=== PATIENT | female | born 1965 | race Caucasian/White ===

== ENCOUNTER 2018-11-19 08:48 | Emergency (ER) | payer BC, OTHER ==
[2018-11-19 09:14] VITALS: BP 138/80
--- NOTE | 2018-11-19 09:27 | UC ---
HPI BURN - HPI Summary HPI Summary: Patient presents to urgent care for evaluation of carlton to her bilateral hands. Patient was at work and he was elementary school. Patient states she touched a hot vidal without hot pads however she goes. Patient states he had a she had pain to her from an index of both hands. Patient removed the closet when her hands under cold water. Patient is well-nourished put AL ointment on her hands. Patient did not take any analgesia. Patient continues to have a stinging feeling on both her thumb and her index on both hands. No open wounds. No blisters. Tetanus is up-to-date. Patient denies any other injuries. Medications reviewed this visit. - History of Current Complaint Chief Complaint: UCBurn Stated Complaint: BURN TO HANDS Time Seen by Provider: 11/19/18 09:26 Hx Obtained From: Patient Hx Last Menstrual Period: NOVASURE AGE 44 Pain Intensity: 6 - Allergy/Home Medications Allergies/Adverse Reactions: Allergies Allergy/AdvReac Type Severity Reaction Status Date / Time codeine Allergy Severe DIFFICULTY Verified 11/19/18 09:04 BREATHING , TIGHTNESS IN CHEST oxycodone Allergy Severe Dizziness Verified 11/19/18 09:04 aspirin Allergy Unknown Vomiting Verified 11/19/18 09:04 azithromycin Allergy Unknown Hives Verified 11/19/18 09:04 ciprofloxacin [From Cipro] Allergy Unknown DIARHHEA Verified 11/19/18 09:04 clarithromycin [From Biaxin] Allergy Unknown Diarrhea Verified 11/19/18 09:04 Penicillins Allergy Unknown Nausea And Verified 11/19/18 09:04 Vomiting amoxicillin Allergy GI Upset Verified 11/19/18 09:41 PMH/Surg Hx/FS Hx/Imm Hx Previously Healthy: Yes - Surgical History Surgical History: Yes Surgery Procedure, Year, and Place: C-SECT--1983. LUMPECTOMY--RIGHT BREAST-- 1983. thymas gland removed. CHOLECYSTECTOMY--2014 - Family History Known Family History: Positive: None, Unknown, Hypertension, Non-Contributory - Social History Occupation: Employed Full-time Lives: With Family Alcohol Use: Occasionally Substance Use Type: None Smoking Status (MU): Never Smoked Tobacco - Immunization History Most Recent Tetanus Shot: 5-7 years ago Review of Systems All Other Systems Reviewed And Are Negative: Yes Constitutional: Positive: Negative Skin: Positive: Other - Carlton bilateral hands Is Patient Immunocompromised?: No Physical Exam - Summary Physical Exam Summary: Vital Signs Reviewed: Yes A+Ox3, no distress Eyes: Conjunctiva Clear ENT: Hearing grossly normal neck: supple Respiratory: Positive: No respiratory distress, No accessory muscle use Cardiovascular: skin color reflect adequate perfusion all digits, 2+ radial, 2+ ulnar Musculoskeletal Exam: + flex/ext elbow, wrist + flex/ext all MCP, PIP, DIP b/l Neurological: Positive: Alert, ambulatory without difficulty Psychological: Positive: Normal Response To examiner Skin: Positive: no rash, no ecchymosis, pt with erythema volar aspect of bilateral thumbs, index along fingers, no blisters. skin intact Triage Information Reviewed: Yes Vital Signs: Initial Vital Signs Temp 99 F 11/19/18 09:08 Pulse 68 11/19/18 09:08 Resp 18 11/19/18 09:08 BP 138/80 11/19/18 09:08 Pulse Ox 98 11/19/18 09:08 Burn Calculation - [place] Formula for Fluid Resuscitation Weight: 81.647 kg 24 -Hour Fluid Replacement: 0.0 Course/Dx Burn - Course Course Of Treatment: Patient presents to urgent care with first-degree carlton to her thumb and index finger on both fingers after grabbing a hot plate at work. Patient is not having blisters. Patient hasn't taken analgesic. Patient's tetanus is up-to- date. Patient did apply aloe cream. On exam vital signs are up-to-date. Patient has first degree carlton to the volar aspect of the thumb and index. No blisters. Skin intact. Anti-inflammatory. Silvadene cream. Cover with bandage. Follow with Dr. Montague or general surgery. Patient complaining of the plan. Return precautions discussed. - Diagnoses Provider Diagnosis: First degree burn of hand including fingers Discharge ED - Sign-Out/Discharge Documenting (check all that apply): Patient Departure All imaging exams completed and their final reports reviewed: No Studies - Discharge Plan Condition: Stable Disposition: HOME Prescriptions: Silver Sulfadiazine 1%* [SILVadine 1%*] 1 applic TOPICAL BID #1 jar Patient Education Materials: Superficial Burn (ED) Referrals: Junito Montague MD [Medical Doctor] - Ashu Acosta MD [Primary Care Provider] - Torres Agarwal MD [Medical Doctor] - Additional Instructions: - apply ointment as prescribed - thick layer, to your carlton 2-3 times a day - Okay to alternate ibuprofen (Advil, Motrin) and Tylenol (acetaminophen) every 3 hours for pain or fever. Take with food. Do NOT take for more than 4-5 days. - Contact the occupational medicine doctor (Dr. Montague) or the general surgery ( Dr. Agarwal) office to schedule a follow-up appointment this week - If you have uncontrolled pain, fever, vomiting or other concerns it is recommended you go to the emergency department for further evaluation and treatment - Billing Disposition and Condition Condition: STABLE Disposition: Home
[2018-11-19] MEDS ORDERED: Silver Sulfadiazine 1%* 20 GM TOPICAL ONE (09:36)
[2018-11-19] MEDS ORDERED: Ibuprofen TAB* 600 MG PO ONE (09:41)
== END 2018-11-19 09:58 | disposition home or self-care (01) ==
LOC: UCEAST 08:48
DX: T23.141A Burn of first degree of multiple right fingers (nail), including thumb, initial encounter (principal); T23.142A Burn of first degree of multiple left fingers (nail), including thumb, initial encounter; Z88.8 Allergy status to other drugs, medicaments and biological substances; Z88.5 Allergy status to narcotic agent; Z88.6 Allergy status to analgesic agent; Z88.1 Allergy status to other antibiotic agents; Z88.0 Allergy status to penicillin; X19.XXXA Contact with other heat and hot substances, initial encounter; Y92.211 Elementary school as the place of occurrence of the external cause
CPT/HCPCS: 99212; A9270-GY; G0463

== ENCOUNTER 2020-11-22 07:39 | Inpatient (IN) ==
[~2020-11-22 07:39] MED LIST: Buffered Lidocaine 1% SYRIN 1 ml INTRADERM ONE; Dexamethasone IV 4 MG/ML VIAL 1 ml VIAL IV SLOW PU ONE; Famotidine IV 10 MG/ML 2 ml VIAL (20 mg) IV ONE; Lactated Ringers 1000 ml BAG 1,000 ML IV SCH
[2020-11-22] MEDS ORDERED: Clindamycin 900 MG/D5W BAG 900 MG/50 ML BAG IVPB ONE (07:51)
[2020-11-22] MEDS ORDERED: Buffered Lidocaine 1% SYRIN 1 ml INTRADERM ONE (07:51)
[2020-11-22] MEDS ORDERED: Dexamethasone IV 4 MG/ML VIAL 1 ml VIAL ONE (07:51)
[2020-11-22] MEDS ORDERED: Famotidine IV 10 MG/ML 2 ml VIAL (20 mg) ONE (07:52)
[2020-11-22] MEDS ORDERED: Propofol 10 MG/ML 20 ML BTL ONE (08:35)
[2020-11-22] MEDS ORDERED: Lidocaine 2% PF 5 ML VIAL ONE (08:35)
[2020-11-22] MEDS ORDERED: Rocuronium 50 mg VIAL 10 mg/ml 5 ml VIAL (50 mg) ONE ×2 (08:35→10:16)
[2020-11-22] MEDS ORDERED: Midazolam 5 mg/5 ml VIAL 1 mg/ml 5 ml VIAL (5 mg) ONE (08:35)
[2020-11-22] MEDS ORDERED: fentaNYL 100 mcg/2 ml 50 MCG/ML VIAL ONE ×2 (08:35→12:25)
[2020-11-22] MEDS ORDERED: Propofol 0 MG/0 ML BTL ONE (08:59)
[2020-11-22] MEDS ORDERED: Remifentanil 2 MG VIAL ONE ×2 (09:01→09:32)
[2020-11-22] MEDS ORDERED: EPHEDrine (Pressors) 50 MG/ML VIAL ONE (09:28)
[2020-11-22] MEDS ORDERED: Propofol 1,000 MG/100 ML BTL ONE (10:09)
[2020-11-22] MEDS ORDERED: HYDROmorphone 1 MG/1 ML SYRINGE IV PRN (10:12)
[2020-11-22] MEDS ORDERED: Prochlorperazine 5 mg/ml 2 ml VIAL (10 mg) IV PRN (10:12)
[2020-11-22] MEDS ORDERED: Naloxone 0.4 mg VIAL 0.4 mg/ml 1 ml VIAL IV PRN (10:12)
[2020-11-22] MEDS ORDERED: Acetaminophen IV 1 GM/100ML 100 ML IV ONE (10:50)
[2020-11-22] MEDS ORDERED: Ondansetron 4 mg VIAL 2 MG/ML 2 ml VIAL ONE ×2 (11:02→12:23)
[2020-11-22] MEDS ORDERED: HYDROmorphone 0.5 MG/0.5 ML SYRINGE IV SLOW PU PRN (11:37)
[2020-11-22] MEDS ORDERED: HYDROmorphone 1 MG/1 ML SYRINGE IV SLOW PU PRN (11:37)
[2020-11-22] MEDS ORDERED: diPHENhydraMINE IV 50 MG/ML 1 ml VIAL (BENADRYL) SLOW PUSH PRN (11:37)
[2020-11-22] MEDS ORDERED: Ondansetron 4 mg VIAL 2 MG/ML 2 ml VIAL IV PRN (11:37)
[2020-11-22] MEDS ORDERED: Prochlorperazine 5 mg/ml 2 ml VIAL (10 mg) ONE (11:54)
[2020-11-22] MEDS: fentaNYL 100 mcg/2 ml 50 MCG/ML VIAL IV PRN ×2 (12:27→13:27)
[2020-11-22] MEDS: Heparin 5000 UNITS/ML 1 mL VIAL SUBCUT SCH ×2 (16:06→21:39)
[2020-11-22] MEDS ORDERED: Famotidine IV 10 MG/ML 2 ml VIAL (20 mg) IV SLOW PU SCH (21:00)
[2020-11-22] MEDS: Lactated Ringers 1000 ml BAG 1,000 ML IV SCH (21:38)
[2020-11-23] MEDS: Heparin 5000 UNITS/ML 1 mL VIAL SUBCUT SCH ×2 (06:08→13:45)
[2020-11-23] MEDS: Lactated Ringers 1000 ml BAG 1,000 ML IV SCH (06:09)
[2020-11-23] MEDS ORDERED: DULoxetine DR 60 mg CAP PO SCH (09:00)
[2020-11-23] MEDS ORDERED: D5W 1/2 NS KCl 20 meq 1000 ml 1,000 ML IV SCH (12:00)
[2020-11-23 16:23] VITALS: BP 143/70
[2020-11-25] MEDS ORDERED: Scopolamine PATCH Remove NOTE PATCH OFF ONE (06:00)
== END 2020-11-23 18:19 | disposition home or self-care (01) | DRG 403 ==
LOC: AA 07:39 → SSU 14:09
PROVIDERS: ADMIT Surgery; ATTEND Surgery

== ENCOUNTER 2020-11-26 01:32 | Observation (INO) ==
[2020-11-26] MEDS ORDERED: Lactated Ringers 1000 ml BAG 1,000 ML IV ONE (04:16)
[2020-11-26] MEDS ORDERED: Ondansetron 4 mg VIAL 2 MG/ML 2 ml VIAL IV ONE (04:16)
[2020-11-26] MEDS ORDERED: Thiamine 100 MG/ML 2 ml VIAL 100 MG, Folic Acid IV 1 MG, Multiple Vitamin IV ADULT 10 M... IV ONE (05:00)
[2020-11-26] MEDS ORDERED: NS 0.9% 1000 ml BAG 1,000 ML ONE (05:11)
[2020-11-26] MEDS ORDERED: Thiamine 100 MG/ML 2 ml VIAL (200 mg) ONE (05:11)
[2020-11-26 05:29] LABS: ABS Lymphocytes 0.5 10^3/ul (1.0-4.8); ABS Monocytes 0.2 10^3/ul (0-0.8); ABS Neutrophils 11.8 10^3/ul (1.5-7.7); Hematocrit 41 % (35-47); Hemoglobin 13.9 g/dL (12.0-16.0); Lymphocyte % 4.1 %; Mean Corpuscular HGB Conc 34 g/dL (31-36); Mean Corpuscular Hemoglobin 31 pg (27-31); Mean Corpuscular Volume 90 fL (80-97); Mean Platelet Volume 9.2 fL (7.4-10.4); Platelet Count 288 10^3/uL (150-450); Red Blood Count 4.52 10^6 /uL (3.70-4.87); Red Cell Distribution Width 14 % (10-15); White Blood Count 12.6 10^3/uL (3.5-10.8)
[2020-11-26 05:47] LABS: Albumin 4.1 g/dL (3.2-5.2); Albumin/Globulin Ratio 1.2 (1-3); Calcium 9.2 mg/dL (8.6-10.3); Globulin 3.5 g/dL (2-4); Potassium 3.7 mmol/L (3.5-5.0); Total Bilirubin 0.5 mg/dL (0.2-1.0); Total Protein 7.6 g/dL (6.4-8.9)
[2020-11-26] MEDS ORDERED: Iohexol 300 (CONTRAST) 10 ML SDV IV ONE (07:42)
[2020-11-26] MEDS ORDERED: Ondansetron 4 mg VIAL 2 MG/ML 2 ml VIAL IV PRN (11:06)
[2020-11-26] MEDS ORDERED: Lactated Ringers 1000 ml BAG 1,000 ML IV SCH (12:00)
[2020-11-26 13:33] LABS: Rapid COVID-19 Molecular Undetected (Undetected)
[2020-11-27 07:16] VITALS: BP 123/66
[2020-11-27 09:50] LABS: ABS Eosinophils 0.1 10^3/ul (0-0.6); ABS Lymphocytes 1.4 10^3/ul (1.0-4.8); ABS Monocytes 0.6 10^3/ul (0-0.8); ABS Neutrophils 5.3 10^3/ul (1.5-7.7); Eosinophil % 1.7 %; Hematocrit 37 % (35-47); Hemoglobin 12.3 g/dL (12.0-16.0); Lymphocyte % 19.2 %; Mean Corpuscular HGB Conc 33 g/dL (31-36); Mean Corpuscular Hemoglobin 31 pg (27-31); Mean Corpuscular Volume 92 fL (80-97); Platelet Count 272 10^3/uL (150-450); Red Blood Count 4.02 10^6 /uL (3.70-4.87); Red Cell Distribution Width 14 % (10-15); White Blood Count 7.5 10^3/uL (3.5-10.8)
[2020-11-27 10:02] LABS: Calcium 8.8 mg/dL (8.6-10.3); Potassium 3.7 mmol/L (3.5-5.0)
== END 2020-11-27 11:10 | disposition home or self-care (01) ==
LOC: ED 01:32 → SSU 01:32
PROVIDERS: ADMIT Surgery Surgical Critical Care; ATTEND Surgery Surgical Critical Care